=== PATIENT | female | born 1990 ===

== ENCOUNTER → 2021-03-17 | Outpatient (CLI) | payer OTHER ==
[~2021-03-17] MED LIST: APAP500 MG
== END | disposition home or self-care (01) ==
LOC: PRENATAL 13:00
PROVIDERS: ATTEND Obstetrics & Gynecology Maternal & Fetal Medicine
DX: O35.0XX1 Maternal care for (suspected) central nervous system malformation in fetus, fetus 1 (principal); O35.3XX1 Maternal care for (suspected) damage to fetus from viral disease in mother, fetus 1; O98.512 Other viral diseases complicating pregnancy, second trimester; Z36.89 Encounter for other specified antenatal screening; Z3A.19 19 weeks gestation of pregnancy

== ENCOUNTER → 2021-05-11 | Outpatient (CLI) | payer OTHER | END | disposition home or self-care (01) | LOC: NST 14:56 | PROVIDERS: ATTEND Specialist | DX: Z34.83 Encounter for supervision of other normal pregnancy, third trimester (principal) ==

== ENCOUNTER 2021-05-15 09:21 | Outpatient (CLI) | payer OTHER | END 2021-05-15 09:46 | disposition home or self-care (01) | LOC: PRENATAL 09:21 | PROVIDERS: ATTEND Obstetrics & Gynecology Maternal & Fetal Medicine | DX: O26.843 Uterine size-date discrepancy, third trimester (principal); O28.1 Abnormal biochemical finding on antenatal screening of mother; Z36.89 Encounter for other specified antenatal screening; Z3A.28 28 weeks gestation of pregnancy ==

== ENCOUNTER 2021-07-18 07:19 | Inpatient (IN) | payer OTHER ==
[~2021-07-18] VITALS: Ht 165.1 cm; Wt 105.2 kg
[2021-07-18] MEDS ORDERED: PRENATAL TABLE1 EAC1 (08:47)
[2021-07-18] MEDS ORDERED: VALTREX1000 MG (08:47)
== END 2021-07-20 12:38 | disposition home or self-care (01) | DRG 806 ==
LOC: LDR 07:19 → OB/GYN 07:19
PROVIDERS: ADMIT Specialist; ATTEND Specialist
PROC: 10E0XZZ Delivery of Products of Conception, External Approach (ICD-10-PCS; principal; 2021-07-18)
PROC: 4A1HXFZ Monitoring of Products of Conception, Cardiac Rhythm, External Approach (ICD-10-PCS; 2021-07-18)
DX: O99.824 Streptococcus B carrier state complicating childbirth (principal); O98.52 Other viral diseases complicating childbirth; Z37.0 Single live birth; B00.9 Herpesviral infection, unspecified; Z3A.38 38 weeks gestation of pregnancy

== ENCOUNTER 2025-01-14 04:35 | Day surgery (SDC) | payer OTHER ==
[2025-01-06 12:59] VITALS: BP 116/79
[~2025-01-14] VITALS: Ht 165.1 cm; Wt 102.1 kg
[~2025-01-14 04:35] MED LIST changes: +PRENATAL TABLE1 EAC1; +VALTREX1000 MG
[2025-01-14] MEDS ORDERED: DEXAMETHASONE SODIUM PHOSPHATE 4 MG/ML VIAL ONE (07:10)
[2025-01-14] MEDS ORDERED: MORPHINE SULFATE 4 MG/ML VIAL IV ONE (09:45)
== END 2025-01-14 13:45 | disposition home or self-care (01) ==
LOC: CIR.AMB 04:35
PROVIDERS: ATTEND Surgery
DX: E04.1 Nontoxic single thyroid nodule (principal); E05.20 Thyrotoxicosis with toxic multinodular goiter without thyrotoxic crisis or storm; E11.9 Type 2 diabetes mellitus without complications; E03.8 Other specified hypothyroidism; Z91.041 Radiographic dye allergy status